=== PATIENT | female | born 1965 | race Caucasian/White ===

== ENCOUNTER 2021-12-04 18:13 | Emergency (ER) | payer BC ==
[2021-12-04] MEDS ORDERED: Sodium Chloride 0.9% 10 ML Syringe FLUSH PRN (18:27)
[2021-12-04 18:47] VITALS: BP 159/107; PULSE 90
== END 2021-12-04 20:15 | disposition home or self-care (01) ==
LOC: JD.ED 18:13
DX: R00.2 Palpitations (principal); Z88.1 Allergy status to other antibiotic agents; Z88.0 Allergy status to penicillin
CPT/HCPCS: 36415; 71045; 71045-26; 80053; 83735; 83880; 84443; 84484; 85025; 85610; 85730; 93005; 93010; 93225; 93226; 99285; 99285-25